=== PATIENT | male | born 1990 | race Caucasian/White ===

== ENCOUNTER 2017-02-12 19:09 | Emergency (ER) | payer BC, OTHER ==
[2017-02-12] MEDS ORDERED: Sodium Chloride 0.9% 1000 ML 1,000 ML IV STA (19:24)
[2017-02-12] MEDS ORDERED: THIAMINE 200 MG/2 ML IV ONE (19:26)
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
[2017-02-12] MEDS ORDERED: Sodium Chloride 0.9% 1000 ML 1,000 ML ONE ×2 (19:37→22:01)
[2017-02-12] MEDS ORDERED: THIAMINE 200 MG/2 ML ONE (19:37)
[2017-02-12 19:45] LABS: BASOPHIL % 0.3 % (0.0-0.4); Eosinophil % 0.4 % (0.00-5.0); Granulocytes % 67.3 % (36.0-66.0); Lymphocytes % 24.6 % (24.0-44.0); Mean Cell Volume 87.5 fl (78-100); Mean Corpuscular Hemoglobin 30.5 pg (26-32); Mean Platelet Volume 9.8 fl (6-9.5); Monocytes % 7.4 % (0.0-12.0); Platelet Count 330 K/mm3 (150-450); Red Blood Count 5.34 M/mm3 (4.1-5.6); White Blood Count 12.8 K/mm3 (4.0-10.5)
[2017-02-12] MEDS ORDERED: MORPHINE SULFATE 4 MG INJ IV ONE ×2 (19:59→20:32)
[2017-02-12] MEDS ORDERED: MORPHINE SULFATE 4 MG INJ ONE ×2 (20:01→20:33)
[2017-02-12 20:16] LABS: ALBUMIN 4.8 g/dL (3.4-5.0); ALKALINE PHOSPHATASE 77 U/L (46-116); ANION GAP 21.5 MEQ/L (5-15); BILIRUBIN,TOTAL 0.4 mg/dL (0.2-1.0); BLOOD UREA NITROGEN 8 mg/dL (9-20); CHLORIDE 99 mEq/L (98-107); Carbon Dioxide 21.5 mEq/L (21-32); Glucose 130 MG/DL (70-110); LIPASE 74 U/L (73-393); Potassium 3.3 mEq/L (3.5-5.1); SGOT/AST 20 U/L (15-37); SGPT/ALT 17 U/L (12-78); SODIUM 139 mEq/L (136-145); Total Protein 8.2 gm/dL (6.4-8.2)
[2017-02-12] MEDS ORDERED: PEROXIDE 3% ONE (20:19)
[2017-02-12 20:43] LABS: ACETAMINOPHEN < 2.0 ug/ml (10-30)
[2017-02-12 21:37] LABS: Collection Type VOID
[2017-02-12 21:38] LABS: Bacteria FEW /HPF (NEGATIVE); COMPLETE URINE MICROSCOPIC? YES; Epithelial Cells RARE /HPF (FEW); Hyaline Casts 0-2 /LPF (0-2); Mucus SLIGHT /HPF (NEGATIVE); WBC 0-2 /HPF (0-5)
[2017-02-12] MEDS ORDERED: Sodium Chloride 0.9% 1000 ML 1,000 ML IV SCH (21:45)
[2017-02-12 23:35] VITALS: BP 128/74; PULSE 86; O2SAT 98
--- NOTE | 2017-02-13 08:48 | XRAY ---
Indication: Pain following fall down stairs. Multiple contiguous axial images obtained through the cervical spine. Sagittal and coronal reformatted images obtained. Comparison: January 28, 2010. Axial images again negative for acute fracture, suspicious bony lesions, or spinal canal stenosis. Sagittal and coronal reformatted images demonstrates normal alignment. Disc spaces maintained. No acute compression fracture, subluxation, or jumped facet. Normal-appearing craniocervical junction. Visualized noncontrasted soft tissues including base of the brain and lung apices are unremarkable. Impression: Stable normal CT cervical spine. CT DI 43.94
--- NOTE | 2017-02-13 08:51 | XRAY ---
Indication: Fall down steps. Comparison: None Single AP chest demonstrates normal heart, lungs, and bony thorax with a few scattered calcified granulomas.
--- NOTE | 2017-02-13 08:51 | XRAY ---
Indication: Pain following fall down steps. Comparison: None 3 views of the left ankle demonstrates minimal/mild displaced bimalleolar fractures with soft tissue swelling. No other bony, articular, or soft tissue abnormalities.
--- NOTE | 2017-02-13 08:51 | XRAY ---
Indication: Pain following fall down stairs. Multiple contiguous axial images obtained through the head without contrast. Comparison: None Normal appearing brain parenchyma, ventricles, and bony calvarium. Visualized paranasal sinuses and mastoid air cells are pneumatized and clear. Impression: Normal CT head without contrast exam. CT DI 58.37
--- NOTE | 2017-02-13 08:56 | XRAY ---
Indication: Pain following fall down stairs. Comparison: None 2 views of the left lower leg demonstrates displaced bimalleolar fractures with soft tissue swelling. No other bony, articular, or soft tissue abnormalities.
== END 2017-02-12 23:35 | disposition short-term general hospital (02) ==
LOC: ED 19:09
PROC: 2W3RX1Z Immobilization of Left Lower Leg using Splint (ICD-10-PCS; principal; 2017-02-12)
DX: S00.93XA Contusion of unspecified part of head, initial encounter (principal); S82.842A Displaced bimalleolar fracture of left lower leg, initial encounter for closed fracture; F10.129 Alcohol abuse with intoxication, unspecified; Y04.0XXA Assault by unarmed brawl or fight, initial encounter; W10.9XXA Fall (on) (from) unspecified stairs and steps, initial encounter; R61 Generalized hyperhidrosis
CPT/HCPCS: 29515; 36000; 36415; 70450; 71010; 72125; 73590; 73610; 80053; 80307; 80320; 81000; 82150; 82962; 83690; 83986; 85025; 93005; 96360; 96361; 96374; 96375; 96376; 99285; 99291; G0481; J2270; A9270-GY

== ENCOUNTER 2022-10-11 03:56 | Emergency (ER) | payer OTHER ==
[2022-10-11] MEDS ORDERED: Sodium Chloride 0.9% 1000 ML 1,000 ML IV STA (04:53)
[2022-10-11] MEDS ORDERED: Sodium Chloride 0.9% 1000 ML 1,000 ML ONE (04:55)
[2022-10-11 05:17] LABS: ACETAMINOPHEN < 10 ug/ml (10-30); SALICYLATE < 1.0 mg/dL (2-20)
[2022-10-11 05:30] LABS: ETHYL ALCOHOL 449 mg/dL (0-10)
[2022-10-11 05:46] LABS: Epithelial Cells RARE /HPF (FEW); WBC 0-2 /HPF (0-5)
[2022-10-11 05:48] LABS: Appearance CLEAR (CLEAR); Bilirubin NEGATIVE (NEGATIVE); Dipstick done @ ? MAIN LAB; Glucose NEGATIVE (NEGATIVE); Ketones NEGATIVE (NEGATIVE); Nitrite NEGATIVE (NEGATIVE); Protein,Urine Dip NEGATIVE (Negative); RBC NEGATIVE Ery/ul (0-5); Urobilinogen 0.2 mg/dL (0-1)
[2022-10-11 05:49] LABS: Urine Cultured Indicated? NO
--- NOTE | 2022-10-11 05:54 | ERPHSYRPT ---
- History of Present Illness Time Seen by Provider: 10/11/22 05:52 Source: patient Patient Subjective Stated Complaint: "I've just drank too much". Triage Nursing Assessment: pt ambulated into ER, stumbling. Pt states, "I was dropped off by my girlfriend because I was intoxicated". Pt informed us he drinks 4 pints of vodka daily and uses marijuana daily. Pt states he here "because I've just had too much to drink". Physician History: Patient a 32-year-old male presents to emergency department for evaluation of detox. Patient states he drinks 4 pints of vodka per day. Patient smokes marijuana. Patient states he wants to recover. Patient admits he is an alcoholic and wants help. Patient was dropped off today by his girlfriend. Patient states he drinks daily to deal with the of his father. No pain. No trauma. No fever. Symptoms are mild to moderate in intensity. No specific worsening improving factors. Patient voices no other complaints or concerns at this time. Portions of this note were created with voice recognition technology. There may be grammatical, spelling, punctuation or sound alike errors Timing/Duration: today Severity: moderate Modifying Factors: Improves With: nothing Associated Symptoms: denies symptoms Allergies/Adverse Reactions: cefadroxil [From [facility]] Allergy (Verified 10/11/22 04:25) Home Medications: No Home Meds [No Home Meds] 1 [facility] UD 02/12/17 [History] Hx Tetanus, Diphtheria Vaccination/Date Given: No Hx Influenza Vaccination/Date Given: No Hx Pneumococcal Vaccination/Date Given: No Immunizations Up to Date: No Travel Risk - International Travel Have you traveled outside of the country in past 3 weeks: No - Coronavirus Screening Are you exhibiting any of the following symptoms?: No Close contact with a COVID-19 positive Pt in past 14-21 Days: No - Vaccine Status Have you recieved a Covid-19 vaccination: No - Review of Systems Constitutional: No Symptoms, No Fever, No Chills Eyes: No Symptoms Ears, Nose, & Throat: No Symptoms Respiratory: No Symptoms, No Cough, No Dyspnea Cardiac: No Symptoms, No Chest Pain, No Edema, No Syncope Abdominal/Gastrointestinal: No Symptoms, No Abdominal Pain, No Nausea, No Vomiting, No Diarrhea Genitourinary Symptoms: No Symptoms, No Dysuria Musculoskeletal: No Symptoms, No Back Pain, No Neck Pain Skin: No Symptoms, No Rash Neurological: No Symptoms, No Dizziness, No Focal Weakness, No Sensory Changes Psychological: No Symptoms Endocrine: No Symptoms Hematologic/Lymphatic: No Symptoms Immunological/Allergic: No Symptoms All Other Systems: Reviewed and Negative - Past Medical History Pertinent Past Medical History: No Neurological History: No Pertinent History ENT History: No Pertinent History Cardiac History: No Pertinent History Respiratory History: No Pertinent History Endocrine Medical History: No Pertinent History Musculoskeletal History: Fractures Other Medical History: L Foot Surgery, R elbow/distal forearm soft tissue injury with lasting impairment of R pinky ROM per patient reprot (2014) - Past Surgical History Past Surgical History: No Other Surgical History: pt denies hx of surgeries - Social History Smoking Status: Current every day smoker Exposure to second hand smoke: Yes Drug Use: marijuana Patient Lives Alone: Yes - Nursing Vital Signs Nursing Vital Signs: Initial Vital Signs Temperature 97.8 F 10/11/22 04:15 Pulse Rate 118 H 10/11/22 04:15 Respiratory Rate 24 10/11/22 04:15 Blood Pressure 160/96 10/11/22 04:15 O2 Sat by Pulse Oximetry 97 10/11/22 04:15 Pain Scale Pain Intensity 4 - Physical Exam General Appearance: no apparent distress, alert, other Eye Exam: PERRL/EOMI, eyes nml inspection Ears, Nose, Throat Exam: normal ENT inspection, TMs normal, pharynx normal, moist mucous membranes Neck Exam: normal inspection, non-tender, supple, full range of motion Respiratory Exam: normal breath sounds, lungs clear, No respiratory distress Cardiovascular Exam: regular rate/rhythm, normal heart sounds, normal peripheral pulses Gastrointestinal/Abdomen Exam: soft, normal bowel sounds, No tenderness, No mass Back Exam: normal inspection, normal range of motion, No CVA tenderness, No vertebral tenderness Extremity Exam: normal inspection, normal range of motion, pelvis stable Neurologic Exam: alert, oriented x 3, cooperative, normal mood/affect, nml cerebellar function, nml station & gait, sensation nml, No motor deficits Skin Exam: normal color, warm, dry, No rash Lymphatic Exam: No adenopathy SpO2 Interpretation: normal SpO2: 95 O2 Delivery: Room Air - Course Nursing assessment & vital signs reviewed: Yes Ordered Tests: Active Orders 24 hr Category Date Time Status Clean Catch Urine Specimen STAT Care 10/11/22 04:51 Active ACETAMINOPHEN Stat Lab 10/11/22 04:51 Completed CBC W DIFF Stat Lab 10/11/22 04:25 Completed CMP Stat Lab 10/11/22 04:25 Completed ETHYL ALCOHOL Stat Lab 10/11/22 04:51 Completed SALICYLATE Stat Lab 10/11/22 04:51 Completed UA W/RFX CULTURE Stat Lab 10/11/22 04:55 Completed Urine Triage Profile Stat Lab 10/11/22 04:55 Completed Medication Summary Discontinued Medications Generic Name Dose Route Start Last Admin Trade Name Braydenq PRN Reason Stop Dose Admin Sodium Chloride 1,000 mls @ 999 mls/hr 10/11/22 04:53 10/11/22 07:14 Sodium Chloride 0.9% 1000 Ml IV 10/11/22 05:53 Infused .Q1H1M STA Infusion Sodium Chloride Confirm 10/11/22 04:55 Sodium Chloride 0.9% 1000 Ml Administered 10/11/22 04:56 Dose 1,000 mls @ ud .ROUTE .STK-MED ONE Ondansetron HCl 4 mg 10/11/22 05:55 10/11/22 05:58 Ondansetron Hcl 4 Mg/2 Ml Vial IV 10/11/22 05:56 4 mg STAT ONE Administration Ondansetron HCl Confirm 10/11/22 05:56 Ondansetron Hcl 4 Mg/2 Ml Vial Administered 10/11/22 05:57 Dose 4 mg .ROUTE .STK-MED ONE Ondansetron HCl 4 mg 10/11/22 07:10 10/11/22 07:11 Ondansetron Hcl 4 Mg/2 Ml Vial IV 10/11/22 07:11 4 mg STAT ONE Administration Ondansetron HCl Confirm 10/11/22 07:10 Ondansetron Hcl 4 Mg/2 Ml Vial Administered 10/11/22 07:11 Dose 4 mg .ROUTE .STK-MED ONE Pantoprazole Sodium 40 mg 10/11/22 07:10 10/11/22 07:11 Pantoprazole 40 Mg Vial IV 10/11/22 07:11 40 mg STAT ONE Administration Pantoprazole Sodium Confirm 10/11/22 07:11 Pantoprazole 40 Mg Vial Administered 10/11/22 07:12 Dose 40 mg IV .STK-MED ONE Lab/Rad Data: Laboratory Result Diagrams 10/11/22 04:25 10/11/22 04:25 Laboratory Results 10/11/22 10/11/22 10/11/22 Range/Units 05:30 04:55 04:55 WBC (4.0-10.5) x10^3/uL RBC (4.1-5.6) x10^6/uL Hgb (12.5-18.0) g/dL Hct (42-50) % MCV (78-100) fL MCH (26-32) pg MCHC (32-36) g/dL RDW (11.5-14.0) % Plt Count (150-450) x10^3/uL MPV (7.5-11.0) fL Gran % (36.0-66.0) % Immature Gran % (Auto) (0.00-0.4) % Nucleat RBC Rel Count (0.00-0.1) % Eos # (Auto) (0-0.5) x10^3/uL Immature Gran # (Auto) (0.00-0.03) x10^3u/L Absolute Lymphs (auto) (1.0-4.6) x10^3/uL Absolute Monos (auto) (0.0-1.3) x10^3/uL Absolute Nucleated RBC (0.00-0.01) x10^3u/L Lymphocytes % (24.0-44.0) % Monocytes % (0.0-12.0) % Eosinophils % (0.00-5.0) % Basophils % (0.0-0.4) % Absolute Granulocytes (1.4-6.9) x10^3/uL Basophils # (0-0.4) x10^3/uL Sodium (137-145) mmol/L Potassium (3.5-5.1) mmol/L Chloride (98-107) mmol/L Carbon Dioxide (22-30) mmol/L Anion Gap (5-15) MEQ/L BUN (9-20) mg/dL Creatinine (0.66-1.25) mg/dL Estimated GFR ML/MIN Glucose (74-106) mg/dL Calcium (8.4-10.2) mg/dL Total Bilirubin (0.2-1.3) mg/dL AST (17-59) U/L ALT (0-50) U/L Alkaline Phosphatase (38-126) U/L Serum Total Protein (6.3-8.2) g/dL Albumin (3.5-5.0) g/dL Urinalys Dipstick Clnc MAIN LAB Urine Color YELLOW (YELLOW) Urine Appearance CLEAR (CLEAR) Urine pH 6.0 (5-6) Ur Specific [place] 1.010 (1.005-1.025) POC Urine Protein Conf NEGATIVE (Negative) Urine Ketones NEGATIVE (NEGATIVE) Urine Nitrite NEGATIVE (NEGATIVE) Urine Bilirubin NEGATIVE (NEGATIVE) Urine Urobilinogen 0.2 (0-1) mg/dL Urine Leukocytes NEGATIVE (NEGATIVE) Urine WBC (Auto) 0-2 (0-5) /HPF Urine RBC (Auto) Not Reportable U Epithel Cells (Auto) RARE (FEW) /HPF Urine Bacteria (Auto) Not Reportable Urine RBC NEGATIVE (0-5) Wade/ul Ur Culture Indicated? NO Urine Glucose NEGATIVE (NEGATIVE) mg/dL Salicylates (2-20) mg/dL Urine Opiates Level NEGATIVE (NEGATIVE) Ur Methadone NEGATIVE (NEGATIVE) Acetaminophen (10-30) ug/ml Urine Barbiturates NEGATIVE (NEGATIVE) Ur Phencyclidine (PCP) NEGATIVE (NEGATIVE) Urine Amphetamine POSITIVE (NEGATIVE) U Benzodiazepine Level NEGATIVE (NEGATIVE) Urine Cocaine NEGATIVE (NEGATIVE) Urine Marijuana (THC) POSITIVE (NEGATIVE) Ethyl Alcohol (0-10) mg/dL Influenza Type A Ag NEGATIVE (NEGATIVE) Influenza Type B Ag NEGATIVE (NEGATIVE) RSV (PCR) NEGATIVE (Negative) SARS-CoV-2 (PCR) NEGATIVE (NEGATIVE) 10/11/22 10/11/22 10/11/22 Range/Units 04:51 04:25 04:25 WBC 8.6 (4.0-10.5) x10^3/uL RBC 4.48 (4.1-5.6) x10^6/uL Hgb 14.7 (12.5-18.0) g/dL Hct 43.9 (42-50) % MCV 98.0 (78-100) fL MCH 32.8 H (26-32) pg MCHC 33.5 (32-36) g/dL RDW 12.6 (11.5-14.0) % Plt Count 188 (150-450) x10^3/uL MPV 10.0 (7.5-11.0) fL Gran % 48.3 (36.0-66.0) % Immature Gran % (Auto) 0.2 (0.00-0.4) % Nucleat RBC Rel Count 0.0 (0.00-0.1) % Eos # (Auto) 0.07 (0-0.5) x10^3/uL Immature Gran # (Auto) 0.02 (0.00-0.03) x10^3u/L Absolute Lymphs (auto) 3.57 (1.0-4.6) x10^3/uL Absolute Monos (auto) 0.74 (0.0-1.3) x10^3/uL Absolute Nucleated RBC 0.00 (0.00-0.01) x10^3u/L Lymphocytes % 41.5 (24.0-44.0) % Monocytes % 8.6 (0.0-12.0) % Eosinophils % 0.8 (0.00-5.0) % Basophils % 0.6 (0.0-0.4) % Absolute Granulocytes 4.16 (1.4-6.9) x10^3/uL Basophils # 0.05 (0-0.4) x10^3/uL Sodium 143 (137-145) mmol/L Potassium 3.3 L (3.5-5.1) mmol/L Chloride 101 (98-107) mmol/L Carbon Dioxide 25 (22-30) mmol/L Anion Gap 20.9 H (5-15) MEQ/L BUN 5 L (9-20) mg/dL Creatinine 0.86 (0.66-1.25) mg/dL Estimated GFR > 60.0 ML/MIN Glucose 144 H (74-106) mg/dL Calcium 9.1 (8.4-10.2) mg/dL Total Bilirubin 1.00 (0.2-1.3) mg/dL AST 217 H (17-59) U/L ALT 152 H (0-50) U/L Alkaline Phosphatase 122 (38-126) U/L Serum Total Protein 8.7 H (6.3-8.2) g/dL Albumin 5.0 (3.5-5.0) g/dL Urinalys Dipstick Clnc Urine Color (YELLOW) Urine Appearance (CLEAR) Urine pH (5-6) Ur Specific [place] (1.005-1.025) POC Urine Protein Conf (Negative) Urine Ketones (NEGATIVE) Urine Nitrite (NEGATIVE) Urine Bilirubin (NEGATIVE) Urine Urobilinogen (0-1) mg/dL Urine Leukocytes (NEGATIVE) Urine WBC (Auto) (0-5) /HPF Urine RBC (Auto) U Epithel Cells (Auto) (FEW) /HPF Urine Bacteria (Auto) Urine RBC (0-5) Wade/ul Ur Culture Indicated? Urine Glucose (NEGATIVE) mg/dL Salicylates < 1.0 L (2-20) mg/dL Urine Opiates Level (NEGATIVE) Ur Methadone (NEGATIVE) Acetaminophen < 10 L (10-30) ug/ml Urine Barbiturates (NEGATIVE) Ur Phencyclidine (PCP) (NEGATIVE) Urine Amphetamine (NEGATIVE) U Benzodiazepine Level (NEGATIVE) Urine Cocaine (NEGATIVE) Urine Marijuana (THC) (NEGATIVE) Ethyl Alcohol 449 H (0-10) mg/dL Influenza Type A Ag (NEGATIVE) Influenza Type B Ag (NEGATIVE) RSV (PCR) (Negative) SARS-CoV-2 (PCR) (NEGATIVE) - Progress Progress Note: Work-up pending. Patient endorsed Dr. Johnson at approximately 7 AM. 10/11/22 07:22 - Departure Departure Disposition: Transfer Clinical Impression: Alcohol intoxication Condition: Stable Critical Care Time: No Referrals: DOCTOR,NO FAMILY [Primary Care Provider] - Follow up/PCP as directed
[2022-10-11] MEDS ORDERED: Zofran 4 MG/2 ML VIAL IV ONE ×2 (05:55→07:10)
[2022-10-11] MEDS ORDERED: Zofran 4 MG/2 ML VIAL ONE ×2 (05:56→07:10)
[2022-10-11 05:59] LABS: Amphetamine,Urine POSITIVE (NEGATIVE); Barbiturate,Urine NEGATIVE (NEGATIVE); Benzodiazepine,Urine NEGATIVE (NEGATIVE); Cocaine,Urine NEGATIVE (NEGATIVE); Methadone,Urine NEGATIVE (NEGATIVE); Opiate,Urine NEGATIVE (NEGATIVE); PCP,Urine NEGATIVE (NEGATIVE); THC,Urine POSITIVE (NEGATIVE)
[2022-10-11 06:10] LABS: INFLUENZA A NEGATIVE (NEGATIVE); INFLUENZA B NEGATIVE (NEGATIVE); RESPIRATORY SYNCTIAL VIRUS NEGATIVE (Negative); SARS-CoV-2 Xpert Express NEGATIVE (NEGATIVE)
[2022-10-11 07:07] LABS: Absolute Neutrophil Ct (ANC) 4.16 x10^3/uL (1.4-6.9); Basophil (Absolute #) 0.05 x10^3/uL (0-0.4); Eosinophil % 0.8 % (0.00-5.0); Eosinophil (Absolute #) 0.07 x10^3/uL (0-0.5); Hematocrit 43.9 % (42-50); Hemoglobin 14.7 g/dL (12.5-18.0); Lymphocyte (Absolute #) 3.57 x10^3/uL (1.0-4.6); Lymphocytes % 41.5 % (24.0-44.0); Mean Corpuscular Hemoglobin 32.8 pg (26-32); Mean Corpuscular Hgb Concent. 33.5 g/dL (32-36); Monocyte (Absolute #) 0.74 x10^3/uL (0.0-1.3); Monocytes % 8.6 % (0.0-12.0); Neutrophil % 48.3 % (36.0-66.0); Platelet Count 188 x10^3/uL (150-450); Red Blood Count 4.48 x10^6/uL (4.1-5.6); Red Cell Distribution Width 12.6 % (11.5-14.0); White Blood Count 8.6 x10^3/uL (4.0-10.5)
[2022-10-11] MEDS ORDERED: PROTONIX 40 MG IV IV ONE ×2 (07:10→07:11)
[2022-10-11 07:16] LABS: ALKALINE PHOSPHATASE 122 U/L (38-126); ANION GAP 20.9 MEQ/L (5-15); BLOOD UREA NITROGEN 5 mg/dL (9-20); CHLORIDE 101 mmol/L (98-107); Calcium 9.1 mg/dL (8.4-10.2); Carbon Dioxide 25 mmol/L (22-30); Creatinine 1 0.86 mg/dL (0.66-1.25); EST GLOMERULAR FILTRATION RATE > 60.0 ML/MIN; Glucose 144 mg/dL (74-106); Potassium 3.3 mmol/L (3.5-5.1); SGOT/AST 217 U/L (17-59); SGPT/ALT 152 U/L (0-50); SODIUM 143 mmol/L (137-145); Total Protein 8.7 g/dL (6.3-8.2)
[2022-10-11] MEDS ORDERED: Compazine 10 MG/2 ML ONE (10:47)
[2022-10-11 10:51] VITALS: O2SAT 98
[2022-10-11] MEDS ORDERED: Compazine 10 MG/2 ML IV ONE (10:52)
[2022-10-11 11:05] VITALS: BP 116/68; PULSE 108
== END 2022-10-11 12:28 | disposition short-term general hospital (02) ==
LOC: ED 03:56
DX: F10.129 Alcohol abuse with intoxication, unspecified (principal); Y90.8 Blood alcohol level of 240 mg/100 ml or more; Z63.4 Disappearance and death of family member; Z28.310 Unvaccinated for COVID-19; Z72.0 Tobacco use
CPT/HCPCS: 0241U; 36415; 80053; 80307; 81015; 85025; 96360; 96374; 96375; 96376; 99284; G0480; J2405